=== PATIENT | female | born 1950 | race Caucasian/White ===

== ENCOUNTER 2020-06-05 02:27 | Emergency (ER) | payer OTHER, MEDICARE ==
[~2020-06-05] VITALS: Ht 152.4 cm; Wt 39.0 kg
[~2020-06-05 02:27] MED LIST: CALCIUM & VITAMIN D3 PO; CYMBALTA60 MG PO; LIPITOR20 M1 PO; ZESTRIL10 M1 PO
[2020-06-05] MEDS ORDERED: LOSARTAN POTASS50 MG PO (02:55)
[2020-06-05] MEDS ORDERED: ESCITALOPRAM OX20 MG PO (02:56)
[2020-06-05] MEDS ORDERED: ARIPIPRAZOLE10 MG PO (02:56)
[2020-06-05] MEDS ORDERED: ARIPIPRAZOLE5 MG PO (02:57)
[2020-06-05 03:25] LABS: HEMOGLOBIN 15.5 g/dl (12.0-16.0); IMMATURE GRANULOCYTES 0.3 % (0.0-5.0); MEAN CELL VOLUME 89.5 fL CALC (80.0-100.0); MEAN CORPUSCULAR HGB CONC 32.4 g/dL CAL (32.0-36.0); NEUT# 8.7 thou/uL (2.00-7.15); RED BLOOD COUNT 5.34 mill/uL (4.20-5.60); RED CELL DISTRI WIDTH 14.6 % (11.5-15.5)
[2020-06-05 03:31] LABS: HEMATOCRIT 47.8 % (37.0-47.0)
[2020-06-05 03:40] LABS: ALBUMIN 4.2 g/dL (3.2-5.0); ALKALINE PHOSPHATASE 91 u/l (38-126); ANION GAP 12 (6-22 (CALC)); BILIRUBIN, TOTAL 0.6 mg/dL (0.0-1.4); BUN 12 mg/dL (8-23); BUN/CREATININE RATIO 18 (12-20 (CALC)); CARBON DIOXIDE 25 mmol/l (22-30); CHLORIDE 103 mmol/l (95-108); CREATININE 0.7 mg/dL (0.5-1.0); GFR > 60 ML/MIN (>=60 (CALC)); GFR FOR AFR.AMER. > 60 ML/MIN (>=60 (CALC)); POTASSIUM 4.2 mmol/l (3.5-5.1); SGOT/AST 31 u/l (9-36); SODIUM 136 mmol/l (137-146); TOTAL PROTEIN 6.9 g/dL (6.3-8.2)
[2020-06-05 03:48] LABS: D-DIMER 0.76 mg/L (0.19-0.60)
[2020-06-05 03:50] LABS: MYOGLOBIN 52 ng/mL (0 - 62)
[2020-06-05 03:52] LABS: ACT PARTIAL THROMBO TIME 20.2 SECONDS (20.0-32.5); INTERNATIONAL NORMALIZED RATIO 1.1 RATIO (0.7-1.3); PROTHROMBIN TIME 10.7 SECONDS (9.0-12.5)
[2020-06-05] MEDS ORDERED: DOXYCYCL HYC100 MG PO (04:08)
[2020-06-05] MEDS ORDERED: PREDNISONE50 MG PO (04:08)
[2020-06-05 04:52] VITALS: BP 147/65
== END 2020-06-05 05:00 | disposition home or self-care (01) | DRG 192 ==
LOC: ED 02:27
PROVIDERS: Family Medicine
DX: J44.1 Chronic obstructive pulmonary disease with (acute) exacerbation (principal); J44.0 Chronic obstructive pulmonary disease with (acute) lower respiratory infection; J20.9 Acute bronchitis, unspecified; I10 Essential (primary) hypertension; E78.00 Pure hypercholesterolemia, unspecified; F17.210 Nicotine dependence, cigarettes, uncomplicated; Z20.822 Contact with and (suspected) exposure to COVID-19

== ENCOUNTER 2021-06-08 17:59 | Emergency (ER) | payer OTHER, MEDICARE ==
[~2021-06-08] VITALS: Ht 152.4 cm; Wt 39.4 kg
[~2021-06-08 17:59] MED LIST changes: +ARIPIPRAZOLE10 MG PO; +ARIPIPRAZOLE5 MG PO; +DOXYCYCL HYC100 MG PO; +ESCITALOPRAM OX20 MG PO; +LOSARTAN POTASS50 MG PO; +PREDNISONE50 MG PO
[2021-06-08 20:33] VITALS: BP 174/91
== END 2021-06-08 20:39 | disposition home or self-care (01) | DRG 605 ==
LOC: ED 17:59
DX: S00.83XA Contusion of other part of head, initial encounter (principal); S00.12XA Contusion of left eyelid and periocular area, initial encounter; S42.035A Nondisplaced fracture of lateral end of left clavicle, initial encounter for closed fracture; I10 Essential (primary) hypertension; J44.9 Chronic obstructive pulmonary disease, unspecified; E78.00 Pure hypercholesterolemia, unspecified; F17.210 Nicotine dependence, cigarettes, uncomplicated; W01.0XXA Fall on same level from slipping, tripping and stumbling without subsequent striking against object, initial encounter; Y93.H9 Activity, other involving exterior property and land maintenance, building and construction; Y92.007 Garden or yard of unspecified non-institutional (private) residence as the place of occurrence of the external cause

== ENCOUNTER 2024-04-13 19:36 | Inpatient (IN) | payer OTHER, MEDICARE ==
[2024-04-13] VITALS (15 sets, daily range): BP systolic 138–185; BP diastolic 60–86
[~2024-04-13] VITALS: Ht 152.4 cm; Wt 35.2 kg
--- NOTE | 2024-04-13 19:38 | NUR ---
PT TO ER BED 6 FOR TRIAGE AT THIS TIME WITH AN EVEN AND STEADY GAIT IN NO APPARENT DISTRESS. CALL LIGHT WITHIN REACH AND PT AWAITING EDP EXAM. PT SA02 IS 89% ON RA. EDP IS AWARE.
[2024-04-13] MEDS ORDERED: IPRATROPIUM-Albuterol 0.5MG-2.5MG/3 ML NEB ONE (19:45)
[2024-04-13] MEDS ORDERED: ALBUTEROL SULFATE 2.5 MG VIAL IN ONE (19:45)
[2024-04-13] MEDS ORDERED: methylPREDNISolone SODIUM SUCC 125 MG/2 ML SDV IV ONE (19:45)
--- NOTE | 2024-04-13 20:05 | NUR ---
PT MEDICTAED PER MD ORDERS. RT AT BEDSIDE AT THIS TIME.
[2024-04-13 20:09] LABS: BASO% 0.4 % (0-3); EOS% 0.5 % (0-8); HEMOGLOBIN 16.1 g/dl (12.0-16.0); IMMATURE GRANULOCYTES 0.1 % (0.0-5.0); MEAN CELL VOLUME 92.3 fL CALC (80.0-100.0); MEAN CORPUSCULAR HGB 30.3 pG CALC (26.0-32.0); MEAN CORPUSCULAR HGB CONC 32.9 g/dL CAL (32.0-36.0); MONO% 9.2 % (2-13); NEUT# 7.48 thou/uL (2.00-7.15); NEUT% 78.8 % (42-76); RED BLOOD COUNT 5.31 mill/uL (4.20-5.60); RED CELL DISTRI WIDTH 14.8 % (11.5-15.5)
[2024-04-13 20:45] LABS: ALBUMIN 4.1 g/dL (3.2-5.0); BILIRUBIN, TOTAL 0.8 mg/dL (0.02-1.3); CREATININE 0.8 mg/dL (0.5-1.0); POTASSIUM 4.6 mmol/l (3.5-5.1); TOTAL PROTEIN 6.6 g/dL (6.3-8.2)
[2024-04-13] MEDS ORDERED: OSELTAMIVIR PHOSPHATE 75 MG/TAB CAP PO ONE (21:50)
[2024-04-13] MEDS ORDERED: MAGNESIUM HYDROXIDE 30 ML UDC PO PRN (21:55)
[2024-04-13] MEDS ORDERED: ACETAMINOPHEN 325 MG/TAB PO PRN (21:55)
[2024-04-13] MEDS ORDERED: Zaleplon 5 MG/CAP PO PRN (21:55)
[2024-04-13] MEDS ORDERED: ALBUTEROL SULFATE 2.5 MG VIAL NEB SCH (23:00)
--- NOTE | 2024-04-13 23:36 | NUR ---
PT REPORT CALLED TO GABRIELA CORONADO IN MS[facility].
--- NOTE | 2024-04-13 23:40 | NUR ---
REPORT RECEIVED FROM Timo GOMEZ RN
--- NOTE | 2024-04-13 23:50 | NUR ---
PT TRANSPORT[place] [facility] [place] BY [employer].
--- NOTE | 2024-04-13 23:51 | NUR ---
PATIENT ARRIVED TO FLOOR VIA STRETCHER ACCOMPANIED BY AMBER SIMMONS
[2024-04-14 00:04] VITALS: BP 162/69
[2024-04-14 03:58] VITALS: BP 114/65
--- NOTE | 2024-04-14 04:25 | NUR ---
LAB AT BEDSIDE OBTAINING MORNING LABS.
[2024-04-14 04:54] LABS: BASO% 0.3 % (0-3); HEMATOCRIT 44.3 % (37.0-47.0); HEMOGLOBIN 14.8 g/dl (12.0-16.0); IMMATURE GRANULOCYTES 0.6 % (0.0-5.0); LYMPH% 3.1 % (15-41); MEAN CELL VOLUME 90.8 fL CALC (80.0-100.0); MEAN CORPUSCULAR HGB 30.3 pG CALC (26.0-32.0); MEAN CORPUSCULAR HGB CONC 33.4 g/dL CAL (32.0-36.0); MONO% 1.7 % (2-13); NEUT# 8.22 thou/uL (2.00-7.15); NEUT% 94.3 % (42-76); RED BLOOD COUNT 4.88 mill/uL (4.20-5.60); RED CELL DISTRI WIDTH 14.3 % (11.5-15.5)
[2024-04-14 05:14] LABS: BILIRUBIN, TOTAL 0.5 mg/dL (0.02-1.3); CREATININE 0.7 mg/dL (0.5-1.0); POTASSIUM 4.1 mmol/l (3.5-5.1); TOTAL PROTEIN 6.5 g/dL (6.3-8.2)
[2024-04-14 07:04] VITALS: BP 135/70
--- NOTE | 2024-04-14 07:34 | NUR ---
PATIENT LYING IN BED AWAKE. BREATHING UNLABORED ON 2L NC. IV IN LAC SL;SITE CLEAN AND INTACT. PT DENIES ANY PAIN OR N/D/V AT THIS TIME. BED IN LOWEST POSITION. PERSONAL ITEMS WELL CALL LIGHT WITHIN REACH. NO NEEDS AT THIS TIME. POC ONGOING.
--- NOTE | 2024-04-14 08:38 | NUR ---
Asked pt if they would like to wash up. Pt stated "Maybe later". Clean linen in bathroom with clean gown. Explained to pt to let me know when ready to wash up. Pt understood. Call light within reach.
[2024-04-14] MEDS ORDERED: ESCITALOPRAM 10 MG/TAB PO SCH (09:00)
[2024-04-14] MEDS ORDERED: LOSARTAN Potassium 50 MG/TAB PO SCH (09:00)
[2024-04-14] MEDS ORDERED: OSELTAMIVIR PHOSPHATE 75 MG/TAB CAP PO SCH (09:00)
[2024-04-14] MEDS ORDERED: methylPREDNISolone Sod Succ 40 MG/ML SDV IV SCH (09:00)
[2024-04-14] MEDS ORDERED: LUNESTA2 MG PO (09:05)
[2024-04-14] MEDS ORDERED: B-121000 MC1 PO (09:06)
[2024-04-14] MEDS ORDERED: LISINOPRIL10 MG PO (09:06)
[2024-04-14] MEDS ORDERED: DULOXETINE HCL60 MG PO (09:09)
[2024-04-14] MEDS ORDERED: MONTELUKAST SOD10 MG PO (09:10)
[2024-04-14] MEDS ORDERED: BUSPIRONE10 MG PO (09:11)
[2024-04-14] MEDS ORDERED: NICOTINE TD (09:12)
[2024-04-14] MEDS ORDERED: ALLEGRA ALLERGY60 MG PO (09:13)
[2024-04-14] MEDS ORDERED: FLONASE AL50 MCG/ACT (09:18)
[2024-04-14] MEDS ORDERED: SYMBICORT1 AE1 IN (09:19)
[2024-04-14] MEDS ORDERED: ALENDRONATE SOD70 MG PO (09:20)
[2024-04-14] MEDS ORDERED: NICOTINE TRANSDERMAL 21 MG/PATCH TD SCH (10:00)
[2024-04-14] MEDS ORDERED: DOXYCYCLINE HYCLATE 100 MG in SODIUM CHLORIDE 0.9% 100 ML IV SCH (11:00)
--- NOTE | 2024-04-14 12:45 | NUR ---
PATIENT LYING IN BED WITH EYES CLOSED RESTING. BREATHING UNLABORED 2L NC. IV IN LAC SL;SITE CLEAN AND INTACT. NO SIGNS OF DISTRESS NOTED. BED IN LOWEST POSITION. PERSONAL ITEMS WELL CALL LIGHT WITHIN REACH. POC ONGOING.
[2024-04-14] MEDS ORDERED: busPIRone HCL 5 MG/TAB PO SCH (15:00)
[2024-04-14 16:23] VITALS: BP 140/64
--- NOTE | 2024-04-14 16:42 | NUR ---
PATIENT SITTING UP IN BED WATCHING TV. BREATHING UNLABORED ON 2L NC. IV IN LAC SL;SITE CLEAN AND INTACT. PT STATES TO HAVE SOME LLEG CRAMPS;REGAN CERDA NOTIFIED AND AWARE. PT DENIES ANY N/D/V AT THIS TIME.PERSONAL ITEMS WELL CALL LIGHT NEAR. BED IN LOWEST POSITION. POC ONGOING.
[2024-04-14] MEDS ORDERED: GABAPENTIN 100 MG/CAP PO SCH (17:56)
[2024-04-14 18:30] VITALS: BP 142/64
--- NOTE | 2024-04-14 20:00 | NUR ---
RECEIVED REPORT FROM NURSE [place], PATIENT ALERT ORIENTED ABLE MTO MAKE NEEDS KNOWN, IV ON LAC SALINE LOCK, PATENT FLUSHES WELL, O2 AT 2LPM VIA NC, SHALLOW, UNLABORED BREATHING,COUGHINGNTED PRODUCTIVE YELLOW, DENIES PAIN AT THIS TIME,
[2024-04-14] MEDS ORDERED: ENOXAPARIN SODIUM 40 MG/0.4 ML SYR SC SCH (21:00)
--- NOTE | 2024-04-14 23:41 | NUR ---
PATIENT REMAINS ON ISOLATION, ONGOING DOXYCYCLINE INFUSING REMAINS ON 2 LPM VIA NC, SHALLOW, UNLABORED BREATHING.
[2024-04-15 04:02] VITALS: BP 125/64
[2024-04-15 04:21] LABS: HEMATOCRIT 43.9 % (37.0-47.0); HEMOGLOBIN 14.3 g/dl (12.0-16.0); MEAN CORPUSCULAR HGB 30.3 pG CALC (26.0-32.0); MEAN CORPUSCULAR HGB CONC 32.6 g/dL CAL (32.0-36.0); RED BLOOD COUNT 4.72 mill/uL (4.20-5.60); RED CELL DISTRI WIDTH 14.3 % (11.5-15.5)
--- NOTE | 2024-04-15 04:27 | NUR ---
PATIENT REMAINS ON O2 @ 2LPM VIA NC, BREATHING UNLABORED, CALL LIGHT WITHIN REACHED.
[2024-04-15 04:33] LABS: ALBUMIN 3.3 g/dL (3.2-5.0); CREATININE 0.7 mg/dL (0.5-1.0); POTASSIUM 4.3 mmol/l (3.5-5.1); TOTAL PROTEIN 5.6 g/dL (6.3-8.2)
[2024-04-15 04:34] LABS: BILIRUBIN, TOTAL 0.2 mg/dL (0.02-1.3)
[2024-04-15 05:14] VITALS: BP 125/64
[2024-04-15 07:35] VITALS: BP 135/74
[2024-04-15] MEDS ORDERED: LISINOPRIL 10 MG/TAB PO SCH (09:00)
[2024-04-15] MEDS ORDERED: GABAPENTIN 100 MG/CAP PO SCH (09:00)
[2024-04-15] MEDS ORDERED: DULOXETINE HCl 30 MG/CAP PO SCH (09:00)
--- NOTE | 2024-04-15 11:57 | NUR ---
PATEINT A/O X3L; ROOM AIR; BREATHING UNLABORED AND EVN; DENIED ANY PAIN; DNEIED ANY N/D/V AT THIS TIME; NO ISSUES; NICTOTINE PATCH IN PLACED; NO S.S OF DISTRESS; IVSITE CLEAN AND INTACT RUNNING WITH ANTIBODICS WITH NOISSUES; TELE LEAD INTACT AND WORKING; CALL LIGHT WITHIN REACH; VERBALIZED UNDERSANDING ON HOW TO USE, PERSONAL ITEMS WITHIN REACH; BED IN LOWEST POSTION;SAFETY MEASURES INPLACE
[2024-04-15 15:24] VITALS: BP 112/62
[2024-04-15 17:50] VITALS: BP 112/62
[2024-04-15 18:54] VITALS: BP 130/64
--- NOTE | 2024-04-15 19:25 | NUR ---
PATIENT OBSERVED RESTING IN BED. ALERT AND ABLE TO MAKE NEEDS KNOWN. ASSESSMENT COMPLETE. NO DISTRESS NOTED. O2 AT 2L VIA NC. NON PRODUCTIVE COUGH OBSERVED. PATIENT DID VOICE SHE BRINGS UP SPUTUM AT TIMES BUT I HAVE NOT SEEN IT. NO COMPLAINTS OF PAIN. DENIES NEEDING ANYTHING AT THIS TIME. BED IN LOW POSITION. CALL HUNTLEY IN REACH.
--- NOTE | 2024-04-15 23:31 | NUR ---
PATIENT OBSERVED RESTING IN BED. DENIES NEEDING ANYTHING AT THIS TIME. BED REMAINS IN LOW POSITION. CALL HUNTLEY IN REACH.
--- NOTE | 2024-04-16 04:34 | NUR ---
PATIENT OBSERVED SITTING UP IN BED WATCHING TV. DENIES NEEDING ANYTHING AT THIS TIME. NO SHORTNESS OF BREATH. BED REMAINS IN LOW POSITION. CALL HUNTLEY IN REACH.
[2024-04-16 05:19] VITALS: BP 153/77
[2024-04-16 05:31] LABS: BASO% 0.1 % (0-3); HEMATOCRIT 43.9 % (37.0-47.0); HEMOGLOBIN 14.3 g/dl (12.0-16.0); IMMATURE GRANULOCYTES 0.2 % (0.0-5.0); LYMPH% 7.2 % (15-41); MEAN CELL VOLUME 92.8 fL CALC (80.0-100.0); MEAN CORPUSCULAR HGB 30.2 pG CALC (26.0-32.0); MEAN CORPUSCULAR HGB CONC 32.6 g/dL CAL (32.0-36.0); MONO% 6.6 % (2-13); NEUT# 7.44 thou/uL (2.00-7.15); NEUT% 85.9 % (42-76); RED BLOOD COUNT 4.73 mill/uL (4.20-5.60); RED CELL DISTRI WIDTH 14.6 % (11.5-15.5)
[2024-04-16 05:56] LABS: ALBUMIN 3.1 g/dL (3.2-5.0); BILIRUBIN, TOTAL 0.2 mg/dL (0.02-1.3); CREATININE 0.7 mg/dL (0.5-1.0); MAGNESIUM 1.5 mg/dL (1.6-2.3); POTASSIUM 4.3 mmol/l (3.5-5.1); TOTAL PROTEIN 5.5 g/dL (6.3-8.2)
[2024-04-16 07:47] VITALS: BP 153/79
--- NOTE | 2024-04-16 08:00 | NUR ---
PT SEEN AWAKE, ALERT, ORIENTED X 3. LUNGS ARE CLEAR BUT DIMINISHED, PT ON 2 LPM NC. PT AMBULATORY IN ROOM. DROPLET PRECAUTIONS IN PLACE.
[2024-04-16 10:56] VITALS: BP 141/75
[2024-04-16] MEDS ORDERED: MAGNESIUM SULFATE HEPTAHYDRATE 50 ML IV SCH (11:00)
--- NOTE | 2024-04-16 13:00 | NUR ---
PT CONTINUES BEFORE, BREATHING TREATMENTS PROVIDED ORDERED BY RT. PT STATES THAT SHE HOPES TO STOP SMOKING AFTER THIS HOSPITALIZATIONS.
[2024-04-16 15:56] VITALS: BP 144/76
--- NOTE | 2024-04-16 17:23 | NUR ---
PT WITHOUT CHANGE IN STATUS REMAINS AT REST IN THE BED, NO COMPLAINTS AND NO EVIDENCE OF DISTRESS.
[2024-04-16 19:20] VITALS: BP 138/70
--- NOTE | 2024-04-16 20:00 | NUR ---
RECEIVED REPORT FROM DAYSINFT NURSE. PT NOTED SITTING UP IN BED WITH NASAL CANNULA IN PLACE. PT IS A/OX3, DENIES ANY N/V/P. NURSING ASSESSMENT COMPLETED AND IV SITE APPEARS HEALTHY AND INTACT. FLUSHES W/O DIFFICULTY. EDUCATED PT ON PLAN OF CARE AND MED SCHEDULE. CALL LIGHT WITHIN REACH AND SAFETY PRECAUTIONS IN PLACE.
--- NOTE | 2024-04-17 | NUR ---
PT LAYING IN BED, RESTING COMFORTABLY AT THIS TIME. NASAL CANNULA IN PLACE. DENIES ANY N/V/P AT THIS TIME. VSS. NO S/S OF DISTRESS. CALL LIGHT WITHIN REACH AND SAFETY PRECAUTIONS IN PLACE.
[2024-04-17 04:41] VITALS: BP 162/88
[2024-04-17 05:21] LABS: HEMATOCRIT 45.2 % (37.0-47.0); HEMOGLOBIN 14.8 g/dl (12.0-16.0); IMMATURE GRANULOCYTES 0.4 % (0.0-5.0); LYMPH% 14.9 % (15-41); MEAN CELL VOLUME 91.7 fL CALC (80.0-100.0); MEAN CORPUSCULAR HGB CONC 32.7 g/dL CAL (32.0-36.0); MONO% 5.6 % (2-13); NEUT# 4.26 thou/uL (2.00-7.15); NEUT% 79.1 % (42-76); RED BLOOD COUNT 4.93 mill/uL (4.20-5.60); RED CELL DISTRI WIDTH 14.5 % (11.5-15.5)
[2024-04-17 05:28] LABS: ALBUMIN 3.3 g/dL (3.2-5.0); CREATININE 0.6 mg/dL (0.5-1.0); MAGNESIUM 1.7 mg/dL (1.6-2.3); POTASSIUM 4.2 mmol/l (3.5-5.1); TOTAL PROTEIN 5.7 g/dL (6.3-8.2)
[2024-04-17 05:36] LABS: BILIRUBIN, TOTAL 0.3 mg/dL (0.02-1.3)
[2024-04-17 06:59] VITALS: BP 176/96
[2024-04-17] MEDS ORDERED: VIBRAMYCIN100 M2 PO (08:30)
[2024-04-17] MEDS ORDERED: PREDNISONE10 MG PO (08:31)
[2024-04-17] MEDS ORDERED: ROBITUSSIN AC10 ML PO (08:33)
[2024-04-17 10:38] VITALS: BP 142/73
--- NOTE | 2024-04-17 12:06 | NUR ---
Discharge instructions given. Patient verbalizes understanding of same. Discharged in stable condition via Wheelchair to Home with spouse. All belongings sent with pt.
--- NOTE | 2024-04-19 13:06 | NUR ---
Discharge follow up call completed 04/19/24. Pt states she is doing well and feels much improved. Patient has home oxygen and is using as necessary. She is aking prescribed medication as directed. Patient saw her PCP today. No needs or concerns verbalized at this time.
== END 2024-04-17 12:06 | disposition home health service (06) | DRG 193 ==
LOC: ED 19:36 → ED-I 21:35 → ED 21:48 → MS2 21:49
PROVIDERS: Family Medicine; Nurse Practitioner Family; ADMIT Internal Medicine; ATTEND Internal Medicine
DX: J10.1 Influenza due to other identified influenza virus with other respiratory manifestations (principal); J96.01 Acute respiratory failure with hypoxia; J44.1 Chronic obstructive pulmonary disease with (acute) exacerbation; I10 Essential (primary) hypertension; E78.00 Pure hypercholesterolemia, unspecified; F17.210 Nicotine dependence, cigarettes, uncomplicated; F41.9 Anxiety disorder, unspecified; F32.A Depression, unspecified; Z20.822 Contact with and (suspected) exposure to COVID-19
CPT/HCPCS: J1650; J3475

== ENCOUNTER 2024-04-20 12:42 | Inpatient (IN) | payer OTHER, MEDICARE ==
[~2024-04-20] VITALS: Ht 152.4 cm; Wt 40.1 kg
[~2024-04-20 12:42] MED LIST changes: +ALENDRONATE SOD70 MG PO; +ALLEGRA ALLERGY60 MG PO; +B-121000 MC1 PO; +BUSPIRONE10 MG PO; +DULOXETINE HCL60 MG PO; +FLONASE AL50 MCG/ACT; +LISINOPRIL10 MG PO; +LUNESTA2 MG PO; +MONTELUKAST SOD10 MG PO; +NICOTINE TD; +PREDNISONE10 MG PO; +ROBITUSSIN AC10 ML PO; +SYMBICORT1 AE1 IN; +VIBRAMYCIN100 M2 PO
[2024-04-20] MEDS ORDERED: cefTRIAXone SODIUM 2 GM in SODIUM CHLORIDE 0.9% 100 ML IV ONE (12:50)
[2024-04-20] MEDS ORDERED: DOXYCYCLINE HYCLATE 100 MG in SODIUM CHLORIDE 0.9% 100 ML IV ONE (12:50)
[2024-04-20] MEDS ORDERED: IPRATROPIUM-Albuterol 0.5MG-2.5MG/3 ML NEB ONE ×2 (12:50)
[2024-04-20] MEDS ORDERED: SODIUM CHLORIDE 0.9% 500 ML IV ONE (13:05)
[2024-04-20 13:19] LABS: BASO% 0.1 % (0-3); EOS% 0.1 % (0-8); HEMATOCRIT 47.6 % (37.0-47.0); HEMOGLOBIN 15.6 g/dl (12.0-16.0); IMMATURE GRANULOCYTES 0.2 % (0.0-5.0); LYMPH% 18.9 % (15-41); MEAN CELL VOLUME 89.6 fL CALC (80.0-100.0); MEAN CORPUSCULAR HGB 29.4 pG CALC (26.0-32.0); MEAN CORPUSCULAR HGB CONC 32.8 g/dL CAL (32.0-36.0); MONO% 8.2 % (2-13); NEUT# 10.31 thou/uL (2.00-7.15); NEUT% 72.5 % (42-76); RED BLOOD COUNT 5.31 mill/uL (4.20-5.60); RED CELL DISTRI WIDTH 14.1 % (11.5-15.5)
[2024-04-20 13:46] LABS: ALBUMIN 3.8 g/dL (3.2-5.0); ALKALINE PHOSPHATASE 72 u/l (38-126); ANION GAP 10 (6-22 (CALC)); BUN 29 mg/dL (8-23); BUN/CREATININE RATIO 46 (12-20 (CALC)); CARBON DIOXIDE 29 mmol/l (22-30); CHLORIDE 102 mmol/l (95-108); CREATININE 0.6 mg/dL (0.5-1.0); ESTIMATED GFR 96 ML/MIN (>=90 (CALC)); SGOT/AST 31 u/l (9-36); SODIUM 137 mmol/l (137-146); TOTAL PROTEIN 6.1 g/dL (6.3-8.2)
[2024-04-20 13:47] LABS: BILIRUBIN, TOTAL 0.7 mg/dL (0.02-1.3)
[2024-04-20] MEDS ORDERED: IPRATROPIUM-Albuterol 0.5MG-2.5MG/3 ML NEB PRN (14:30)
--- NOTE | 2024-04-20 16:07 | NUR ---
Med surg notified that patient with shortness of breath upon exertion.
--- NOTE | 2024-04-20 17:10 | NUR ---
Report called to FAMILIA Alfaro, Ms.
[2024-04-20] MEDS ORDERED: methylPREDNISolone Sod Succ 40 MG/ML SDV IV SCH (17:18)
[2024-04-20] MEDS ORDERED: CEFEPIME HYDROCHLORIDE 2 GM in SODIUM CHLORIDE 0.9% 100 ML IV SCH (17:30)
--- NOTE | 2024-04-20 17:39 | NUR ---
PT ARRIVED TO UNIT VIA STREACHER STAFF TRANSPORT, PT RESPIRATIONS LABORED WHILE WALKING TO BED WITH STAFF ASSIST. PT ON 2L O2 SHE KEEPS IN HER MOUTH STATING SHE IS A "MOUTH BREATHER" LUNGS ARE COURSE THROUGHOUT, BOWEL SOUNDS ARE ACTIVE, PEDAL PULSES ARE WEAK BUT PALPABLE TO TOUCH, PT DENIES PAIN AT THIS TIME.
[2024-04-20 17:49] VITALS: BP 148/70
[2024-04-20] MEDS ORDERED: DOXYCYCLINE HYCLATE 100 MG in SODIUM CHLORIDE 0.9% 100 ML IV SCH (18:00)
[2024-04-20 18:28] VITALS: BP 118/52
--- NOTE | 2024-04-20 18:30 | NUR ---
CALL PLACED TO DR ASIF TO NOTIFY THAT PT RECIEVED DECADRON ON THE ER AT 1312 DOES HE WANT PT TO RECIEVE THE ORDERED SOLU-MEDROL THATS ORDERED. TELEPHONE ORDER TAKEN FROM DR ASIF TO SPACE SOLU-MEDROL OUT 8 HRS AFTER DECADRON BEING 2100. TELEPHONE ORDER TAKEN TO HOLD THE DOXYCYCLINE TILL THE MORNING PER DR GUILLERMO.
--- NOTE | 2024-04-20 20:00 | NUR ---
PT RESTING IN BED NO DISTRESS NOTED ASSESSMENT DONE. PT STATED HAVING A HEADACHE TYLENOL PROVIDED. NEW IV STARTED ON LW 22G SL. PT ABLE TO USE BSC INDEPENDENTLY. PT ON NC 2L LUNG SOUNDS COARSE OTHER VS WNL. CALL LIGHT WITHIN REACH. PLAN OF CARE ONGOING.
[2024-04-20] MEDS ORDERED: ACETAMINOPHEN 325 MG/TAB PO PRN (20:05)
[2024-04-20] MEDS ORDERED: ENOXAPARIN SODIUM 40 MG/0.4 ML SYR SC SCH (21:00)
[2024-04-20] MEDS ORDERED: GUAIFENESIN 600 MG/TAB PO SCH (21:00)
[2024-04-20] MEDS ORDERED: PANTOPRAZOLE SODIUM Sesquihydr 40 MG/TAB PO SCH (21:19)
[2024-04-21 04:14] VITALS: BP 148/80
--- NOTE | 2024-04-21 04:45 | NUR ---
PT RESTING NO DISTRESS NOTED ON EXAM. CALL LIGHT WITHIN REACH. PLAN OF CARE ONGOING.
--- NOTE | 2024-04-21 07:07 | NUR ---
PT IS AOX4, RESPIRATIONS ARE EVEN AND UNLABORED ON 2L O2, LUNGS SOUND COURSE THROUGHOUT BUT BETTER THAN LASTNIGHT, BOWEL SOUNDS ARE ACTIVE, PEDAL PULSES ARE PALPABLE TO TOUCH, PT DENIES PAIN AT THIS TIME.
[2024-04-21 07:35] VITALS: BP 156/89
[2024-04-21] MEDS ORDERED: LORazepam 0.5 MG/TAB PO PRN (10:15)
[2024-04-21] MEDS ORDERED: IPRATROPIUM-Albuterol 0.5MG-2.5MG/3 ML NEB PRN (10:19)
[2024-04-21] MEDS ORDERED: guaiFENesin-CODEINE 200-20 MG/10 ML UDC PO PRN (10:20)
[2024-04-21] MEDS ORDERED: hydrALAZINE HCL 20 MG/ML VIAL(1 ML) IV PRN (10:25)
[2024-04-21] MEDS ORDERED: LISINOPRIL 10 MG/TAB PO SCH (10:30)
--- NOTE | 2024-04-21 10:41 | NUR ---
ORDERED PRN PO ATIVAN GIVEN FOR ANXIETY. PT TEARFUL AND "SCARED ABOUT NOT KNOWING IF SHE WILL HAVE TO BE ON OXYGEN ALL THE TIME NOW"
[2024-04-21 11:00] VITALS: BP 140/65
[2024-04-21] MEDS ORDERED: LOSARTAN Potassium 50 MG/TAB PO SCH (11:00)
[2024-04-21] MEDS ORDERED: NICOTINE TRANSDERMAL 21 MG/PATCH TD SCH (11:00)
[2024-04-21] MEDS ORDERED: ATORVASTATIN CALCIUM 20 MG/TAB PO SCH (11:00)
[2024-04-21 15:32] VITALS: BP 157/71
[2024-04-21] MEDS ORDERED: CEFEPIME HYDROCHLORIDE 2 GM in SODIUM CHLORIDE 0.9% 100 ML IV SCH (17:00)
--- NOTE | 2024-04-21 17:29 | NUR ---
PT SITTING UP IN BED, RESPIRATIONS ARE SHALLOW AND QUICK ON 2L O2. PT REPORTS FEELING SCARED ABOUT HOW "LONG ITS TAKING TO GET BETTER" DISCUSSED PLAN OF CARE WITH PT AND ANTIBOTICS. PT RESPIRATIONS SLOWED AND BECAME MORE EVEN AND UNLABORED.
[2024-04-21] MEDS ORDERED: DOXYCYCLINE HYCLATE 100 MG in SODIUM CHLORIDE 0.9% 100 ML IV SCH (18:00)
[2024-04-21 18:30] VITALS: BP 164/79
--- NOTE | 2024-04-21 19:41 | NUR ---
RECEIVED REPORT FORM DAYSRIFT NURSE. PT NOTED LAYING IN BED SEMI FOLWERS, NASAL CANNULA PLACED IN MOUTH AT THIS TIME. PT STATING "I'M A MOUTH BREATHER SO THIS WORKS BETTER FOR ME AND MY NOSE IS DRY" PT O2 SAT WNL. PT IS A/OX3, DENIES ANY PAIN. NURSING ASSESSMENT COMPLETED, IV SITE APPEARS HEALTHY AND INTACT WITH INTERMITTEN ABX ADMINSITERING AT THIS TIME. EDUCATED PT ON PLAN OF CARE AND MED SCHEDULE, PT REQUEST ANXIETY MEDS WITH NIGHTLY MEDS. VSS. NO S/S OF DISTRESS. CALL LIGHT WITHIN REACH AND SAFETY PRECAUTIONS IN PLACE.
[2024-04-21] MEDS ORDERED: methylPREDNISolone Sod Succ 40 MG/ML SDV IV SCH (21:00)
[2024-04-22] VITALS (7 sets, daily range): BP systolic 140–174; BP diastolic 64–90
--- NOTE | 2024-04-22 | NUR ---
PT LAYING IN BED SEMI FOWLERS WITH NASAL CANNULA AT MOUTH, RESTING COMFORTABLY AT THIS TIME. VSS. NO S/S OF DISTRESS. CALL LIGHT WIHTIN REACH AND SAFETY PRECAUTIONS IN PLACE.
[2024-04-22 04:32] LABS: BASO% 0.1 % (0-3); HEMATOCRIT 43.7 % (37.0-47.0); HEMOGLOBIN 14.5 g/dl (12.0-16.0); IMMATURE GRANULOCYTES 1.1 % (0.0-5.0); LYMPH% 8.3 % (15-41); MEAN CELL VOLUME 90.3 fL CALC (80.0-100.0); MEAN CORPUSCULAR HGB CONC 33.2 g/dL CAL (32.0-36.0); MONO% 3.1 % (2-13); NEUT# 12.26 thou/uL (2.00-7.15); NEUT% 87.4 % (42-76); RED BLOOD COUNT 4.84 mill/uL (4.20-5.60); RED CELL DISTRI WIDTH 14.2 % (11.5-15.5)
[2024-04-22 04:38] LABS: CREATININE 0.6 mg/dL (0.5-1.0); MAGNESIUM 1.8 mg/dL (1.6-2.3); TOTAL PROTEIN 5.3 g/dL (6.3-8.2)
[2024-04-22 04:44] LABS: BILIRUBIN, TOTAL 0.3 mg/dL (0.02-1.3)
--- NOTE | 2024-04-22 05:25 | NUR ---
PT LAYING IN BED SEMI FOWLERS WITH NASAL CANNULA PLACED AT MOUTH. PT WAS EASY TO AROUSE, DENIES ANY N/V/P AT THIS TIME. ABX ADMINSITERING PER EMAR. NO S/S OF DISTRESS. CALL LIGHT WITHIN REACH AND SAFETY PRECAUTIONS IN PLACE.
--- NOTE | 2024-04-22 08:08 | NUR ---
patient a/o x3l; on ; with labored breathing when talking; denied any pain; denied any n/d/v at this time; iv site clean and intact saline locked at this time; no s/s of distress at this time; tele leads intact and working at this time; non-productive cough at this time; call light within reach, verbalized understanding on how to use, personal items within reach; bed in lowest postion;safety measures in place
--- NOTE | 2024-04-22 12:50 | NUR ---
PATIENT IS RESTING IN BED; ON 2L OF ; BREATHING UNLABORED; NO S.S OF DISTRESS AT THIS TIME; TELE LEADS INTACT AND WORKING; DNEIED ANY PAIN;DENIED ANY N/D/V AT THIS TIME; IV SITE CLEAN AND INTCAT SALINE LCOKED AT THIS TIME; CALL LIGHT WITHIN REACH, VERBALIZED UNDERSTANIDNG ON HOW TO USE, PERSONAL ITESM WITHIN REACH; BED IN LOWEST POSTION;SAFETY MEAUSURES IN PLACE
[2024-04-22] MEDS ORDERED: IPRATROPIUM-Albuterol 0.5MG-2.5MG/3 ML NEB SCH (13:00)
--- NOTE | 2024-04-22 15:47 | NUR ---
PATIENT IS AWAKE AND WATCHING TV; DENIED ANY PAIN; DENIED ANY N/D/V AT THIS TIME; IV SITE CLEAN AND INTACT SALINE LOCKED AT THISTIME; TELE LEADS IN ATCT AND WORKING; NO COMPLAINTS AT THIS TIME; CALL LIGHT WITHIN REACH, VERBALIZED UNDERSTANDING ON HOW TO USE, PERSONAL ITEMS WITHIN REACH, BED IN LOWEST POSTION;SAFETY MEASURES IN PLACE
--- NOTE | 2024-04-22 17:36 | NUR ---
SANDRO WAS FOR 1700, IS LATE CALLED PHARMACY 3 TIMES, WAS TOLD THEY HAVING ISSUES AND WILL BRING IT WHEN THEY CAN
--- NOTE | 2024-04-22 18:56 | NUR ---
JUST STARTED PATEINT MAXIPIME, PATIENT STATED THAT THE MEDICATION IS BURNING, REDUCED RATE IN HALF; NO COMPLAINTS AT THIS TIME; SINCE REDUCED RATE;
--- NOTE | 2024-04-22 21:09 | NUR ---
pt is in room and medication has been given for night time meds. pt was educated on medications and has no questions. Pt vitals are stable pt does have productive cough. pt has call light in reach. pt did use bedside commode with no issues. pt has no needs at this time.
--- NOTE | 2024-04-23 00:01 | NUR ---
PER DR CALLAHAN AND CANDY SEPARATOR ENROBING ORDR PT TELE IS D/C'D. PT IS IN ROOM AOX4, VITALS STABLE, NO COMPLAINTS AT THIS TIME. PT HAS CALL LIGHT IN REACH AND INTERMITENT PRODUCTIVE COUGH. PT IS ON 2L NC AT THIS TIME
--- NOTE | 2024-04-23 01:00 | NUR ---
RECIVED SHIFT REORT FROM JOELLE
--- NOTE | 2024-04-23 04:08 | NUR ---
PATIENT IN BED RESTING WITH EYES CLOSED. UNLABORED RESP WITH O2 VIA NC AT 2L. NO VISUAL SIGNS OF DISTRESS. BED AT LOWEST POSITION. CALL LIGHT WITH IN REACH.
[2024-04-23 05:05] VITALS: BP 148/75
[2024-04-23 05:27] LABS: ALBUMIN 3.4 g/dL (3.2-5.0); BILIRUBIN, TOTAL 0.4 mg/dL (0.02-1.3); CREATININE 0.9 mg/dL (0.5-1.0); MAGNESIUM 1.8 mg/dL (1.6-2.3); POTASSIUM 5.1 mmol/l (3.5-5.1); TOTAL PROTEIN 5.8 g/dL (6.3-8.2)
[2024-04-23 05:29] LABS: BASO% 0.1 % (0-3); HEMATOCRIT 45.6 % (37.0-47.0); HEMOGLOBIN 15.1 g/dl (12.0-16.0); IMMATURE GRANULOCYTES 1.1 % (0.0-5.0); LYMPH% 6.4 % (15-41); MEAN CELL VOLUME 90.1 fL CALC (80.0-100.0); MEAN CORPUSCULAR HGB 29.8 pG CALC (26.0-32.0); MEAN CORPUSCULAR HGB CONC 33.1 g/dL CAL (32.0-36.0); MONO% 4.3 % (2-13); NEUT% 88.1 % (42-76); RED BLOOD COUNT 5.06 mill/uL (4.20-5.60); RED CELL DISTRI WIDTH 14.1 % (11.5-15.5)
[2024-04-23 06:45] VITALS: BP 169/76
--- NOTE | 2024-04-23 08:05 | NUR ---
PATIENT A/O X3; ON ; NO S.S OF DISTRESS AT THIS TIEM; TELE LEADS INTACT AND WORKING; DENIED ANY PAIN; DENIED ANY N/D/V AT THIS TIME; IV SITE CLEAN AND INTACT SALINE LOCKED AT THIS TIME; POC WAS REVIEWED; CALL LIGHT WITHIN REACH, VERBALIZED UNDERSTANDING ON HOW TO USE, PERSONAL ITEMS WITHIN REACH; BED IN LOWEST POSTION;SAFETY MEAURES IN PLACE
--- NOTE | 2024-04-23 12:53 | NUR ---
PATIENT IS RESTING IN BED; 2L OF 02; DENIED ANY PAIN; DENIED ANY N/D/V AT THIS TIME; NO S.S OF DISTRESS AT THIS TIME; IV SITE CLEAN AND INTACT SALINE LOCKED AT THIS TIME; DNIED NEEDING ANYTHING; BSC WITHIN REACH; CALL LIGHT WITHIN REACH, VERBALIZED UNDERSTANDING ON HOW TO USE, PERSONAL ITEMS WITHIN REACHL BED IN LOWEST POSTION;SAFETY MEAURES IN PLACE
[2024-04-23] MEDS ORDERED: methylPREDNISolone Sod Succ 40 MG/ML SDV IV SCH (14:00)
[2024-04-23 15:10] VITALS: BP 169/81
--- NOTE | 2024-04-23 16:30 | NUR ---
PATIENT IS A/O X3; ON ; BREATHING IS SIB; DENIED ANY PAIN; DENIED ANY N/D/V AT THIS TIME; TELE LEADS INTACT AND WORKING; NEW IV SITE WAS INSERTED IN [facility] BY FIBROUS PLASTERER; DENEID ANY COMPLAINTS; PATIENT IS SITTING SEMI FOLWER POSTION IN BED ON THE PHONE; CALL LIGHT WITHIN REACH, VERBALIZED UNDERSTANDING ON HOW TO USE, PERSONAL ITEMS WITHIN REACH; BED IN LOWEST POSTION;SAFETY MEASURES
[2024-04-23 18:28] VITALS: BP 148/65
--- NOTE | 2024-04-23 20:00 | NUR ---
RECEIVED REPORT FROM NURSE MARY, PATIENT SITTING IN BED, WATCHING TV, ALERT ORIENTED, ON O2 @ 2LPM VIA NC, SHALLOW BREATHING, COUGHING YELLOW IN COLOR, PATIENT IS A MOUTH BREATHER, IV PATENT FLUSHES WELL ON LEFT HAND DENIES PAIN AT THIS TIME, CALL LIGHT WITHIN REACHED.
--- NOTE | 2024-04-24 | NUR ---
PATIENT RESTING WITH EYES CLOSED, REMAINS ON O2 @ 2LPM VIA NC, CALL LIGHT IN REACHED.
--- NOTE | 2024-04-24 00:40 | NUR ---
PATIENT RESTING WITH EYES CLOSED, REMAINS ON O2 @ 2LPM VIA NC, CALL LIGHT IN REACHED.NO DISCOMFORTS NOTED AT THIS TIME.
[2024-04-24 04:46] VITALS: BP 132/69
--- NOTE | 2024-04-24 05:18 | NUR ---
PATIENT C/O HEADACHE. PRN TYLENOL GIVEN, ONGOING CEFEPIME, REMAINS ON O2 @ 2LPM VIA NC, CALL LIGHT IN REACHED.
[2024-04-24 06:00] LABS: BILIRUBIN, TOTAL 0.3 mg/dL (0.02-1.3); CREATININE 0.6 mg/dL (0.5-1.0); MAGNESIUM 1.8 mg/dL (1.6-2.3); POTASSIUM 4.7 mmol/l (3.5-5.1); TOTAL PROTEIN 5.3 g/dL (6.3-8.2)
[2024-04-24 06:10] LABS: BASO% 0.1 % (0-3); HEMATOCRIT 42.6 % (37.0-47.0); HEMOGLOBIN 14.1 g/dl (12.0-16.0); MEAN CELL VOLUME 90.8 fL CALC (80.0-100.0); MEAN CORPUSCULAR HGB 30.1 pG CALC (26.0-32.0); MEAN CORPUSCULAR HGB CONC 33.1 g/dL CAL (32.0-36.0); MONO% 3.7 % (2-13); NEUT# 12.17 thou/uL (2.00-7.15); NEUT% 87.2 % (42-76); RED BLOOD COUNT 4.69 mill/uL (4.20-5.60); RED CELL DISTRI WIDTH 14.1 % (11.5-15.5)
--- NOTE | 2024-04-24 07:51 | NUR ---
SHIFT CHANGE REPORT, PT AWAKE ALERT AND ORIENTED RESTING IN BED, BREATHING SHALLOW, O2 @ 2L VIA NC IN PLACE, C/O AT THIS TIME OF BURNING TO IV SITE, RATE OF INFUSION DECREASED AND PT REPORS RELIEF, CALL HUNTLEY IN REACH AND BED LOCKED IN LOWEST POSITION.
[2024-04-24 07:58] VITALS: BP 166/81
[2024-04-24 16:51] VITALS: BP 153/68
[2024-04-24 19:11] VITALS: BP 128/63
--- NOTE | 2024-04-25 | NUR ---
PT LAYING IN BED SEMI FOWLERS WITH NASAL CANNULA IN MOUTH, RESTING COMFORTABLY AT THIS TIME. NO S/S OF DISTRESS. CALL LIGHT WITHIN REACH AND SAFETY PRECAUTIONS IN PLACE.
[2024-04-25 03:46] VITALS: BP 139/67
--- NOTE | 2024-04-25 03:56 | NUR ---
PT WAS C/O HEADACHE AND REQUESTING TYLENOL AND COUGH MEDICINE. ADMINSITERED BOTH MEDICATIONS PER EMAR. TOLERATED WELL AND HAVE BEEN EFFECTIVE. PT LAYING IN BED FOLWERS, NASAL CANNULA IN MOUTH. NO S/S OF DISTRESS. CALL LIGHT WITHIN REACH AND SAFETY PRECAUTIONS IN PLACE.
[2024-04-25 05:07] LABS: BASO% 0.1 % (0-3); HEMATOCRIT 41.9 % (37.0-47.0); HEMOGLOBIN 14.2 g/dl (12.0-16.0); IMMATURE GRANULOCYTES 1.7 % (0.0-5.0); LYMPH% 7.7 % (15-41); MEAN CELL VOLUME 89.9 fL CALC (80.0-100.0); MEAN CORPUSCULAR HGB 30.5 pG CALC (26.0-32.0); MEAN CORPUSCULAR HGB CONC 33.9 g/dL CAL (32.0-36.0); MONO% 3.9 % (2-13); NEUT# 14.59 thou/uL (2.00-7.15); NEUT% 86.6 % (42-76); RED BLOOD COUNT 4.66 mill/uL (4.20-5.60); RED CELL DISTRI WIDTH 14.5 % (11.5-15.5)
[2024-04-25 05:12] LABS: ALBUMIN 3.2 g/dL (3.2-5.0); BILIRUBIN, TOTAL 0.4 mg/dL (0.02-1.3); CREATININE 0.6 mg/dL (0.5-1.0); MAGNESIUM 1.8 mg/dL (1.6-2.3); POTASSIUM 4.6 mmol/l (3.5-5.1); TOTAL PROTEIN 5.5 g/dL (6.3-8.2)
--- NOTE | 2024-04-25 07:35 | NUR ---
PT IS AOX4, RESPIRATIONS ARE LABORED ON 2L O2, LUNDS ARE DIM BUT CLEAR THROUGHOUT, BOWEL SOUNDS ACTOVE, PEDAL PULSES ARE PALPABLE TO TOUCH, PT REPORTS HAVING A HEADACHE WITH THE PAIN AT A 2-3 ON A 0-10 PAIN SCALE. WILL BRING PT PRN TYLENOL WITH MORNING MEDS.
[2024-04-25 08:25] VITALS: BP 164/79
[2024-04-25] MEDS ORDERED: BENZOCAINE-MENTHOL (MOUTH-THRO 1 LOZ LOZ PO PRN (09:40)
--- NOTE | 2024-04-25 14:12 | NUR ---
PT SITTING UP IN BED WITH NO ACUTE COMPLAINTS AT THIS TIME.
[2024-04-25] MEDS ORDERED: IPRATROPIUM-Albuterol 0.5MG-2.5MG/3 ML NEB SCH (15:00)
[2024-04-25 16:05] VITALS: BP 119/57
--- NOTE | 2024-04-25 17:59 | NUR ---
PRN ATIVAN GIVEN FOR ANXIETY.
[2024-04-25 19:06] VITALS: BP 130/63
--- NOTE | 2024-04-25 20:00 | NUR ---
RECEIVED REPORT FROM DAYSHIFT NURSE. PT NOTED SITTING UP FOWLERS IN BED, NASAL CANNULA IN MOUTH. PT IS A/OX3, DENIES ANY N/V/P AT THIS TIME. NURSING ASSESSMENT COMPLETED, IV SITE IN APPEARS HEALTHY AND INTACT, FLUSHES W/O DIFFICULTY. PT REQUESTING COUGH MEDICATION. EDUCATED ON MED SCHEDULE AND PLAN OF CARE FOR TONIGHT. VSS. NO S/S OF DISTRESS. CALL LIGHT WITHIN REACH AND SAFETY PRECAUTIONS IN PLACE.
--- NOTE | 2024-04-26 | NUR ---
PT RECEIVED SCHEDULED BREATHING TREATMENT FROM RT PER EMAR, TOLERATED WELL. PT LAYING IN BED SEMI FOLWERS WITH NASAL CANNULA AT MOUTH. RESTING COMFORTABLY WITH EYES CLOSED. NO S/S OF DISTRESS. CALL LIGHT WITHIN REACH AND SAFETY PRECAUTIONS IN PLACE.
[2024-04-26 03:59] VITALS: BP 147/69
[2024-04-26 06:39] VITALS: BP 150/70
[2024-04-26 15:04] VITALS: BP 142/65
--- NOTE | 2024-04-26 15:10 | NUR ---
Administered Robitussin with Codeine at 0816. Medication was wasted and witnessed by Lizzy BARBOSA. Medication was administered to patient but did not scan. Did not notice until MAR was checked for next dose due. Notified the floors buffer, Veronica, of the medication not scanning.
[2024-04-26 18:24] VITALS: BP 116/53
--- NOTE | 2024-04-26 18:26 | NUR ---
Patient conitnues on 2L N/C with no shortness of breath. Recieving Cefepime and steroids IV with no adverse reactions. PT consulted today.
[2024-04-26 19:00] VITALS: BP 116/53
--- NOTE | 2024-04-26 20:00 | NUR ---
RECEIVED REPORT FROM NURSE JUDIT, PATIENT RESTING IN CHAIR, ON O2 @ 2LPM VIA NC, SHALLOW WITH EXERTIONAL DYSPNEA NOTED, IV PATENT FLUSHES WELL 22 ON LEFT HAND, PRODUCTIVE COUGH YELLOW IN COLOR, CALL LIGHT WITHIN REACHED.
--- NOTE | 2024-04-27 00:59 | NUR ---
PATIENT RESTING IN BED, REMAINS ON O2 @ 2LPM VIA NC. PATINET NOT IN DISTRSS, CALL LIGHT WITHIN REACHED.
--- NOTE | 2024-04-27 03:20 | NUR ---
PATIENT AWAKE, REMAIN ON O2 @2lpm via nc, REQUESTING LOZENGE GIVEN, BREATHING UNLABORED CALL LIGHT WITHIN REACHED
[2024-04-27 04:50] VITALS: BP 123/57
[2024-04-27 05:38] LABS: ALBUMIN 3.2 g/dL (3.2-5.0); BILIRUBIN, TOTAL 0.5 mg/dL (0.02-1.3); CREATININE 0.6 mg/dL (0.5-1.0); MAGNESIUM 1.7 mg/dL (1.6-2.3); POTASSIUM 4.3 mmol/l (3.5-5.1); TOTAL PROTEIN 5.5 g/dL (6.3-8.2)
[2024-04-27 05:46] LABS: BASO% 0.1 % (0-3); HEMATOCRIT 43.4 % (37.0-47.0); HEMOGLOBIN 14.6 g/dl (12.0-16.0); MEAN CORPUSCULAR HGB 30.6 pG CALC (26.0-32.0); MEAN CORPUSCULAR HGB CONC 33.6 g/dL CAL (32.0-36.0); MONO% 4.4 % (2-13); NEUT# 17.87 thou/uL (2.00-7.15); NEUT% 88.5 % (42-76); RED BLOOD COUNT 4.77 mill/uL (4.20-5.60); RED CELL DISTRI WIDTH 14.6 % (11.5-15.5)
--- NOTE | 2024-04-27 07:05 | NUR ---
PATIENT LAYING IN BED, WATCHING TV. PATIENT A&OX3 AND ABLE TO MAKE NEEDS KNOWN. PATIENT DENIES ANY NEEDS AT THIS TIME.
[2024-04-27 07:34] VITALS: BP 141/61
--- NOTE | 2024-04-27 11:30 | NUR ---
PATIENT LAYING IN BED. VISITORS AT BEDSIDE. PATIENT DENIES ANY NEEDS AT THIS TIME.
[2024-04-27 15:55] VITALS: BP 137/64
--- NOTE | 2024-04-27 15:56 | NUR ---
PATIENT SITTING UP IN BED. SPOUSE AT BEDSIDE. PATIENT DENIES ANY NEEDS AT THIS TIME.
[2024-04-27 16:34] VITALS: BP 137/64
[2024-04-27] MEDS ORDERED: methylPREDNISolone Sod Succ 40 MG/ML SDV IV SCH (18:00)
[2024-04-27 18:48] VITALS: BP 135/65
--- NOTE | 2024-04-27 19:06 | NUR ---
PATIENT C/O UNABLE TO BREATH, SPO2 @ 94% ON 2LPM VIA NC, DIMINISHED NICOLASA GOUNDS, PATINET RESTLESS, PRN ATIVAM GIVEN, RT IN ROOM FOR HYUN IRIZARRY.
--- NOTE | 2024-04-27 20:59 | NUR ---
PATIENT IV DUE TO BE CHANGED, IV CATH REMOVED NEW IV REINSEERTED AT 22RFA PATENT WELL.
--- NOTE | 2024-04-27 23:58 | NUR ---
PATIENT AWAKE, REMAINS ON O2 @ 2LPM VIA NC, JUST FINISHED BREATHING TREATMENT NOT IN DISTRESS, CALL LIGHT WITHIN REACHED.
--- NOTE | 2024-04-28 04:12 | NUR ---
PATIENT RESTING IN BED, EYES CLOSED, BREATHING EVEN UNLABORED CALL LIGHT WITHIN REACHED.
[2024-04-28 04:25] VITALS: BP 124/65
[2024-04-28 05:37] LABS: HEMATOCRIT 42.1 % (37.0-47.0); HEMOGLOBIN 13.7 g/dl (12.0-16.0); MEAN CELL VOLUME 90.3 fL CALC (80.0-100.0); MEAN CORPUSCULAR HGB 29.4 pG CALC (26.0-32.0); MEAN CORPUSCULAR HGB CONC 32.5 g/dL CAL (32.0-36.0); RED BLOOD COUNT 4.66 mill/uL (4.20-5.60); RED CELL DISTRI WIDTH 14.4 % (11.5-15.5)
[2024-04-28 05:55] LABS: ALBUMIN 3.2 g/dL (3.2-5.0); BILIRUBIN, TOTAL 0.4 mg/dL (0.02-1.3); CREATININE 0.7 mg/dL (0.5-1.0); POTASSIUM 4.3 mmol/l (3.5-5.1); TOTAL PROTEIN 5.4 g/dL (6.3-8.2)
--- NOTE | 2024-04-28 07:02 | NUR ---
PATIENT LAYING IN BED. PATIENT A&OX4 AND ABLE TO MAKE NEEDS KNOWN. PATIENT DENIES ANY NEEDS AT THIS TIME.
[2024-04-28 07:17] VITALS: BP 145/64
[2024-04-28 07:48] VITALS: BP 145/64
--- NOTE | 2024-04-28 11:42 | NUR ---
PATIENT LAYING IN BED. PATIENT DENIES ANY NEEDS AT THIS TIME.
[2024-04-28 15:59] VITALS: BP 109/54
--- NOTE | 2024-04-28 16:03 | NUR ---
PATIENT LAYING IN BED. PATIENT DENIES ANY NEEDS AT THIS TIME.
[2024-04-28] MEDS ORDERED: cefTRIAXone SODIUM 2 GM in SODIUM CHLORIDE 0.9% 100 ML IV SCH (17:00)
[2024-04-28 18:31] VITALS: BP 130/59
--- NOTE | 2024-04-28 19:26 | NUR ---
RECEIVED REPORT FROM NURSE JUANA, PATIENT SITTING IN BED, PATIENT ON O2 AT 2LPM VIA NC, COUGHING NOTED YELLOW THICK, DIMINSHED LUNG SOUNDS, IV ON RFA G 22 PATENT FLUSHES WELL, CALL LIGHT WITHIN REACHED.-
--- NOTE | 2024-04-28 23:31 | NUR ---
PATIENT RETING IN BED, EYES CLOSED, REMAINS ON O2 @ 2LPM VIA NC, PATIENT JUST HAD HER BREATHING TREATMENT CALL LIGHT WITHIN REACHED.
[2024-04-29 04:00] VITALS: BP 126/70
--- NOTE | 2024-04-29 04:29 | NUR ---
PATIENT RESTING IN BED, REMAINS ON O2 @ 2LPM VIA NC, NOT IN DISTRESS, CALL LIGHT WITHIN REACHED.
[2024-04-29 07:09] VITALS: BP 142/67
--- NOTE | 2024-04-29 07:18 | NUR ---
PATIENT LAYING IN BED, WATCHING TV. PATIENT A&OX4 AND ABLE TO MAKE NEEDS KNOWN. PATIENT DENIES ANY NEEDS AT THIS TIME.
--- NOTE | 2024-04-29 11:36 | NUR ---
PATIENT SITTING UP IN BED. PATIENT DENIES ANY NEEDS AT THIS TIME.
[2024-04-29 14:29] VITALS: BP 89/46
[2024-04-29 15:21] VITALS: BP 89/46
--- NOTE | 2024-04-29 15:36 | NUR ---
PATIENT SITTING UP IN BED. PATIENT DENIES ANY NEEDS AT THIS TIME.
[2024-04-29 18:22] VITALS: BP 100/51
--- NOTE | 2024-04-29 19:36 | NUR ---
PT SITTING IN CHAIR NO DISTRESS NOTED. VS WNL ON NC 2L REPORTS NO PAIN. IV FLUSHED WORKING PROPERLY SL. SKIN INTACT WITH SCATTERED BRUISING. PT ALERT AND ORIENTATED X4. CALL LIGHT WITHIN REACH. PLAN OF CARE ONGOING.
[2024-04-29 22:41] VITALS: BP 100/51
--- NOTE | 2024-04-30 00:20 | NUR ---
PT SLEEPING NO DISTRESS NOTED ON EXAM BREATHING EVENLY. CALL LIGHT WITHIN REACH. PLAN OF CARE ONGOING.
--- NOTE | 2024-04-30 05:20 | NUR ---
PT RESTING IN BED NO DISTRESS NOTED. PT GIVEN ATIVAN PO FOR ANXIETY. CALL LIGHT WITHIN REACH. PLAN OF CARE ONGOING.
[2024-04-30 05:21] VITALS: BP 117/57
[2024-04-30 05:34] LABS: BASO% 0.1 % (0-3); EOS% 0.1 % (0-8); HEMATOCRIT 42.3 % (37.0-47.0); HEMOGLOBIN 13.7 g/dl (12.0-16.0); IMMATURE GRANULOCYTES 1.6 % (0.0-5.0); LYMPH% 11.2 % (15-41); MEAN CELL VOLUME 89.6 fL CALC (80.0-100.0); MEAN CORPUSCULAR HGB CONC 32.4 g/dL CAL (32.0-36.0); NEUT# 17.11 thou/uL (2.00-7.15); RED BLOOD COUNT 4.72 mill/uL (4.20-5.60); RED CELL DISTRI WIDTH 14.4 % (11.5-15.5)
[2024-04-30 06:00] LABS: ALBUMIN 3.3 g/dL (3.2-5.0); BILIRUBIN, TOTAL 0.4 mg/dL (0.02-1.3); MAGNESIUM 1.8 mg/dL (1.6-2.3); POTASSIUM 4.5 mmol/l (3.5-5.1); TOTAL PROTEIN 5.4 g/dL (6.3-8.2)
[2024-04-30 06:49] VITALS: BP 117/62
--- NOTE | 2024-04-30 07:37 | NUR ---
patient a/o x3; on 2l of ; breathing unlabored and even; denied any pain; denied any n/d/v at this time; no s.s of distress at this time; iv site clean and intact saeline locked with no issues; patient sitting in semi swain postion in bed on her phone, no complaints; call light steve teran,verbalized understanding on how to use, personal items within reach bed in lowest postion
[2024-04-30 08:02] VITALS: BP 117/62
[2024-04-30] MEDS ORDERED: PREDNISONE10 MG PO (09:32)
--- NOTE | 2024-04-30 12:00 | NUR ---
patient sitting in chair eating lunch; denied any pain; denied any n/d/v at this time; denied any pain; denied needing anything; iv site clean and intact saline locked; on 2l of ; breathing unlabored and even; call light within reach, verbalized understanding on how to use, personal items within reach; bed in lowest postion;guillermo dias in place
--- NOTE | 2024-04-30 13:30 | NUR ---
patient educated on discharge information, awaiting ride; iv site was removed
[2024-04-30] MEDS ORDERED: LORAZEPAM0.5 MG PO (13:54)
--- NOTE | 2024-04-30 14:16 | NUR ---
IV site discontinued, cath intact. No edema , no redness, voices no discomfort. Discharge instructions given. Patient verbalizes understanding of same. Discharged in stable condition via Wheelchair to Home with family. All belongings sent with pt.
== END 2024-04-30 14:13 | DRG 190 ==
LOC: ED 12:42 → ED-I 13:20 → ED 14:20 → MS2 14:21
PROVIDERS: Family Medicine; Nurse Practitioner Family; ADMIT Internal Medicine; ATTEND Internal Medicine
DX: J44.1 Chronic obstructive pulmonary disease with (acute) exacerbation (principal); J96.21 Acute and chronic respiratory failure with hypoxia; J20.8 Acute bronchitis due to other specified organisms; J44.0 Chronic obstructive pulmonary disease with (acute) lower respiratory infection; I95.9 Hypotension, unspecified; J98.2 Interstitial emphysema; I10 Essential (primary) hypertension; E78.00 Pure hypercholesterolemia, unspecified; F41.9 Anxiety disorder, unspecified; F32.A Depression, unspecified; F17.200 Nicotine dependence, unspecified, uncomplicated; Z20.822 Contact with and (suspected) exposure to COVID-19
CPT/HCPCS: J0692; J0696; J1650

== ENCOUNTER 2024-06-20 18:57 | Emergency (ER) | payer OTHER, MEDICARE ==
[~2024-06-20] VITALS: Ht 152.4 cm; Wt 37.0 kg
[~2024-06-20 18:57] MED LIST changes: +LORAZEPAM0.5 MG PO
[2024-06-20] MEDS ORDERED: SODIUM CHLORIDE 0.9% 1,000 ML IV ONE (19:25)
[2024-06-20] MEDS ORDERED: ONDANSETRON HCl 4 MG/2 ML SDV IV ONE (19:25)
[2024-06-20 19:57] LABS: BASO% 0.2 % (0-3); EOS% 0.1 % (0-8); HEMATOCRIT 37.6 % (37.0-47.0); HEMOGLOBIN 12.3 g/dl (12.0-16.0); IMMATURE GRANULOCYTES 0.3 % (0.0-5.0); LYMPH% 7.9 % (15-41); MEAN CELL VOLUME 89.1 fL CALC (80.0-100.0); MEAN CORPUSCULAR HGB 29.1 pG CALC (26.0-32.0); MEAN CORPUSCULAR HGB CONC 32.7 g/dL CAL (32.0-36.0); MONO% 12.8 % (2-13); NEUT# 12.62 thou/uL (2.00-7.15); NEUT% 78.7 % (42-76); RED BLOOD COUNT 4.22 mill/uL (4.20-5.60); RED CELL DISTRI WIDTH 14.6 % (11.5-15.5)
[2024-06-20 20:11] LABS: ALBUMIN 3.8 g/dL (3.2-5.0); CREATININE 0.9 mg/dL (0.5-1.0); POTASSIUM 3.7 mmol/l (3.5-5.1)
[2024-06-20 20:13] LABS: BILIRUBIN, TOTAL 1.1 mg/dL (0.02-1.3); TOTAL PROTEIN 6.6 g/dL (6.3-8.2)
[2024-06-20] MEDS ORDERED: LEVOFLOXACIN750 MG PO (20:37)
[2024-06-20] MEDS ORDERED: levoFLOXacin 500 MG TAB PO ONE (20:40)
[2024-06-20 21:30] VITALS: BP 121/51
[2024-06-20 21:50] VITALS: BP 121/51
== END 2024-06-20 21:50 | disposition home or self-care (01) | DRG 194 ==
LOC: ED 18:57
PROVIDERS: Family Medicine
DX: J18.9 Pneumonia, unspecified organism (principal); J44.0 Chronic obstructive pulmonary disease with (acute) lower respiratory infection; J44.1 Chronic obstructive pulmonary disease with (acute) exacerbation; I10 Essential (primary) hypertension; E78.00 Pure hypercholesterolemia, unspecified; Z87.891 Personal history of nicotine dependence; Z20.822 Contact with and (suspected) exposure to COVID-19
CPT/HCPCS: J2405

== ENCOUNTER 2024-06-21 18:06 | Observation (INO) | payer OTHER, MEDICARE ==
[2024-06-21] VITALS (10 sets, daily range): BP systolic 107–143; BP diastolic 52–74
[~2024-06-21] VITALS: Ht 152.4 cm; Wt 39.6 kg
[~2024-06-21 18:06] MED LIST changes: +LEVOFLOXACIN750 MG PO
--- NOTE | 2024-06-21 18:20 | NUR ---
PT TRIAGED AND PLACED BACK INTO ER LOBBY
--- NOTE | 2024-06-21 19:00 | NUR ---
REPORT RECEIVED FROM Stewart ARRINGTON RN.
[2024-06-21] MEDS ORDERED: SODIUM CHLORIDE 0.9% 1,000 ML IV ONE (19:20)
[2024-06-21] MEDS ORDERED: ONDANSETRON HCl 4 MG/2 ML SDV IV ONE (19:20)
[2024-06-21] MEDS ORDERED: ACETAMINOPHEN 325 MG/TAB PO ONE (19:20)
[2024-06-21 19:57] LABS: ALBUMIN 3.1 g/dL (3.2-5.0); BILIRUBIN, TOTAL 0.6 mg/dL (0.02-1.3); CREATININE 0.8 mg/dL (0.5-1.0); POTASSIUM 3.7 mmol/l (3.5-5.1); TOTAL PROTEIN 5.6 g/dL (6.3-8.2)
[2024-06-21 20:15] LABS: BASO% 0.3 % (0-3); HEMATOCRIT 34.8 % (37.0-47.0); HEMOGLOBIN 11.1 g/dl (12.0-16.0); IMMATURE GRANULOCYTES 0.1 % (0.0-5.0); LYMPH% 7.9 % (15-41); MEAN CELL VOLUME 90.4 fL CALC (80.0-100.0); MEAN CORPUSCULAR HGB 28.8 pG CALC (26.0-32.0); MEAN CORPUSCULAR HGB CONC 31.9 g/dL CAL (32.0-36.0); MONO% 10.9 % (2-13); NEUT# 8.88 thou/uL (2.00-7.15); NEUT% 80.8 % (42-76); RED BLOOD COUNT 3.85 mill/uL (4.20-5.60); RED CELL DISTRI WIDTH 14.8 % (11.5-15.5)
[2024-06-21] MEDS ORDERED: Levofloxacin 750 mg Premix 150 ML IV ONE (20:30)
[2024-06-21] MEDS ORDERED: ACETAMINOPHEN 325 MG/TAB PO PRN (20:55)
[2024-06-21] MEDS ORDERED: MAGNESIUM HYDROXIDE 30 ML UDC PO PRN (20:55)
[2024-06-21] MEDS ORDERED: ENOXAPARIN SODIUM 40 MG/0.4 ML SYR SC SCH (21:00)
[2024-06-21] MEDS ORDERED: methylPREDNISolone Sod Succ 40 MG/ML SDV IV SCH (22:00)
[2024-06-21] MEDS ORDERED: IPRATROPIUM-Albuterol 0.5MG-2.5MG/3 ML NEB SCH (23:00)
--- NOTE | 2024-06-21 23:14 | NUR ---
REPORT GIVEN TO Sandip MORALES LPN.
--- NOTE | 2024-06-21 23:55 | NUR ---
PATIENT TRASNPORTED TO MED SURG ROOM 275. CARE HANDED OVER TO Sandip MORALES LPN.
--- NOTE | 2024-06-22 00:05 | NUR ---
PATIENT ARRIVED FROM ER AT 2350. REPORT OBTAINED FROM GABRIELA. BED SIDE ASSESSMENT COMPLETE. O2 VIA NC AT 2L, RESP EVEN AND UNLABORED. NO VISUAL SIGNS OF DISTRESS. LUNG SOUNDS CLEAR. NORMAL S1 AND S2. ABDOMEN SOFT AND FLAT. BOWEL SOUNDS IN ALL 4 QUADRENTS. PERIPHERAL PULSES EQUAL. BED AT LOWEST POSITION. CALL LIGHT TRI IN REACH.
[2024-06-22 00:08] VITALS: BP 125/65
--- NOTE | 2024-06-22 04:30 | NUR ---
PATIENT OBSERVED TO BE RESTING IN BED. O2 VIA NC AT 2L. NO VISUAL SIGNS OF DISTRESS. BED AT LOWEST POSITION. CALL LIGHT WITH IN REACH.
[2024-06-22 04:45] VITALS: BP 123/60
[2024-06-22 06:57] VITALS: BP 113/72
--- NOTE | 2024-06-22 07:48 | NUR ---
PATIENT IN BED A&O X4 NO C/O PAIN OR SOB. IS RECIEVING A BREATHING TX THIS MORNING . WAITING TO SPEAK WITH DOCTOR.
[2024-06-22] MEDS ORDERED: VENTOLIN HFA108 MCG IN (11:53)
[2024-06-22] MEDS ORDERED: REMERON7.5 MG PO (11:53)
[2024-06-22] MEDS ORDERED: WIXELA INHUB 251 AER IN (11:54)
[2024-06-22] MEDS ORDERED: TIZANIDINE2 MG PO (11:54)
[2024-06-22] MEDS ORDERED: GABAPENTIN100 MG PO (11:55)
[2024-06-22] MEDS ORDERED: ZOLOFT25 MG PO (11:55)
[2024-06-22] MEDS ORDERED: ATIVAN1 M1 PO (11:55)
--- NOTE | 2024-06-22 13:20 | NUR ---
PATIENT RESTING IN BED HAS NO C/O PAIN OR DISCOMFORT AT THIS TIME . IS ON 2L O2.
--- NOTE | 2024-06-22 15:45 | NUR ---
Discharge instructions given. Patient verbalizes understanding of same. Discharged in stable condition via Wheelchair to Home with staff. All belongings sent with pt. removed IV . PATIENT LEFT WITH ALL BELONGINGS / WITH FAMILY. BROUGHT DOWN STAIRS BY NURSE IN WHEEL [facility]. DISCHARGE INSTRUCTIONS WERE REVEIWED WITH PATIENT.
== END 2024-06-22 15:45 | disposition home or self-care (01) | DRG 190 ==
LOC: ED 18:06 → ED-I 20:00 → ED 20:28 → MS2 20:29
PROVIDERS: Family Medicine; ADMIT Internal Medicine; ATTEND Internal Medicine
DX: J44.1 Chronic obstructive pulmonary disease with (acute) exacerbation (principal); J18.9 Pneumonia, unspecified organism; J96.11 Chronic respiratory failure with hypoxia; J44.0 Chronic obstructive pulmonary disease with (acute) lower respiratory infection; I10 Essential (primary) hypertension; E78.00 Pure hypercholesterolemia, unspecified; F41.9 Anxiety disorder, unspecified; F32.A Depression, unspecified
CPT/HCPCS: G0378; J1650; J2405